=== PATIENT | female | born 1960 | race African-American/Black ===

== ENCOUNTER 2016-05-14 16:11 | Emergency (ER) | payer OTHER, MEDICAID ==
[~2016-05-14] VITALS: Ht 175.3 cm; Wt 105.0 kg
[~2016-05-14 16:11] MED LIST: BACT800T5 PO; DICL50TA PO; METF500T PO; REGL10TA5 PO; ROBA750T PO
[2016-05-14 16:13] VITALS: BP 151/92; PULSE 16; PULSE 83; RESP 15; TEMP 98.2; O2SAT 96
[2016-05-14] MEDS ORDERED: ROBA500T PO (18:27)
[2016-05-14] MEDS ORDERED: NAPR500T PO (18:27)
--- NOTE | 2016-05-14 18:28 | PD ---
HPI Chief Complaint: Pain: Acute or Chronic Time Seen by Provider: 18:26 Travel History International Travel<30 days: No Contact w/Intl Traveler<30days: No Traveled to known affect area: No History of Present Illness HPI 56-year-old female presents to the emergency Department with complaint of right shoulder pain since yesterday morning. She says she woke up with the pain and may have slept on it wrong. No known injury or strain. She denies paresthesias , loss of sensation, decreased strength. Reports decreased range of motion secondary to pain. Denies fever, chills, nausea, vomiting. Has not taken any medications or tried any chance to repeat her symptoms. Pain is aggravated with movement and palpation. No relieving factors. History of hypertension and diabetes. Primary Care provider is Jerome doctor. No other modifying factors or associated signs and symptoms. PFSH Past Medical History Hx Anticoagulant Therapy: No Asthma: Yes Cardiovascular Problems: Yes (CHF) Congestive Heart Failure: Yes Diabetes: Yes Diminished Hearing: No Deep Vein Thrombosis: Yes Gastrointestinal Disorders: Yes Hypertension: Yes Implanted Vascular Access Dvce: No Immunizations Current: Yes ?: Not Menopausal: Yes : 1 Para: 1 Past Surgical History Other Surgery: Yes (cyst removed in back) Social History Alcohol Use: No Tobacco Use: No Substance Use: No Allergies-Medications (Allergen,Severity, Reaction): Coded Allergies: *MDRO Multi-Drug Resistant Organism (Verified Allergy, Unknown, 05/01/16) 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 Reported Meds & Prescriptions Reported Meds & Active Scripts Active Robaxin (Methocarbamol) 500 Mg Tab 500 Mg PO QID PRN Naproxen 500 Mg Tab 500 Mg PO BID PRN Reglan (Metoclopramide HCl) 10 Mg Tab 10 Mg PO Q8HR PRN Bactrim DS (Sulfamethoxazole-Trimethoprim) 800-160 Mg Tab 1 Tab PO BID 5 Days Robaxin (Methocarbamol) 750 Mg Tab 750 Mg PO TID PRN Diclofenac Potassium 50 Mg Tab 50 Mg PO TID PRN Reported Metformin (Metformin HCl) 500 Mg Tab 500 Mg PO BIDPC With meals Review of Systems Except as stated in HPI: all other systems reviewed are Neg Physical Exam Narrative GENERAL: Well-nourished, well-developed female patient, in no acute distress; afebrile, nontoxic-appearing SKIN: Warm and dry. HEAD: Atraumatic. Normocephalic. EYES: Pupils equal and round. No scleral icterus. No injection or drainage. ENT: Mucosa pink and moist. Airway patent. NECK: Supple. Trachea midline. CARDIOVASCULAR: Regular rate. RESPIRATORY: No accessory muscle use. GASTROINTESTINAL: Obese. MUSCULOSKELETAL: Right shoulder with point tenderness to the over the acromioclavicular joint; full range of motion greater than 45 abduction; shoulders equal; no obvious deformity; joint stable; right upper extremity supple and non-tense with 2+ radial pulses and sensory intact and without erythema or edema. 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 No obvious deformities. No clubbing. No cyanosis. No edema. NEUROLOGICAL: Awake and alert. Oriented 3. No obvious cranial nerve deficits. Motor grossly within normal limits. Normal speech. PSYCHIATRIC: Appropriate mood and affect; insight and judgment normal. Data Data Last Documented VS Vital Signs Date Time Temp Pulse Resp B/P Pulse Ox O2 Delivery O2 Flow Rate FiO2 05/14/16 16:13 98.2 83 15 151/92 96 Orders Ibuprofen (Motrin) (05/14/16 18:30) Methocarbamol (Robaxin) (05/14/16 18:30) [facility] [place] Medical Decision Making Medical Screen Exam Complete: Yes Emergency Medical Condition: Yes Medical Record Reviewed: Yes Differential Diagnosis Arthritis, shoulder strain, muscle spasm, nonspecific shoulder pain Narrative Course 56-year-old female with right shoulder pain. No known injury or strain. She has reproducible tenderness at the acromioclavicular joint. Shoulder joint is stable and shoulders are equal. I do not suspect fracture, dislocation, joint separation and feel that imaging is not necessary at this time. The right upper extremity supplemented with 2+ radial pulses and sensory intact with full range of motion and strength. Robaxin and ibuprofen administered in the ER. Naproxen and Robaxin prescribed for home. Instructed patient to follow up with orthopedic as needed. Patient is medically cleared and stable for discharge. Discussed reasons to return to the emergency department. Instructed patient to follow up with primary care provider. Patient agrees with treatment plan. The patients vital signs are stable and the patient is stable for outpatient follow- up and treatment. Patient discharged home, stable and in no acute distress. Diagnosis Primary Impression: Right shoulder pain Qualified Code: M25.511 - Acute pain of right shoulder Referrals: Primary Care Physician Patient Instructions: General Instructions, Shoulder Pain (ED) Additional Instructions: Tylenol, ibuprofen, or naproxen as needed and as directed to reduce pain and inflammation Robaxin as prescribed and as needed for muscle spasms Rest, ice, and compress extremity to decrease pain and inflammation Arm sling for support Avoid aggravating activity; increase activity as tolerated Follow-up with primary care provider Follow-up with orthopedics as needed Return to the emergency department immediately with worsening symptoms Med/Other Pt SpecificInfo: Prescription(s) given Scripts Methocarbamol (Robaxin)500 Mg [id number] Mg PO QID PRN (MUSCLE SPASM) #30 TAB Ref 0 Prov:Josi Goznalez 05/14/16 Naproxen 500 Mg [id number] Mg PO BID PRN (PAIN SCALE 1 TO 10) #20 TAB Ref 0 Prov:Josi Gonzalez 05/14/16 Disposition: 01 DISCHARGE HOME Condition: Stable Josi Gonzalez May 14, 2016 18:28
[2016-05-14] MEDS ORDERED: IBUPROFEN 800 MG TAB PO ONE (18:30)
[2016-05-14] MEDS ORDERED: METHOCARBAMOL 500 MG TAB PO ONE (18:30)
== END 2016-05-14 18:48 | disposition home or self-care (01) ==
LOC: NETRI 16:11 → NEPB 16:11 → NETRI 16:21 → NEPB 18:48
DX: M25.511 Pain in right shoulder (principal); I10 Essential (primary) hypertension; E11.9 Type 2 diabetes mellitus without complications; Z79.84 Long term (current) use of oral hypoglycemic drugs; Z86.79 Personal history of other diseases of the circulatory system; Z86.718 Personal history of other venous thrombosis and embolism; Z87.19 Personal history of other diseases of the digestive system
CPT/HCPCS: 99283

== ENCOUNTER 2017-01-12 19:03 | Emergency (ER) | payer OTHER, MEDICAID ==
[~2017-01-12] VITALS: Ht 175.3 cm; Wt 97.5 kg
[~2017-01-12 19:03] MED LIST changes: +NAPR500T PO; +ROBA500T PO
[2017-01-12 19:05] VITALS: BP 163/105; PULSE 74; RESP 16; TEMP 98; O2SAT 95
--- NOTE | 2017-01-12 19:29 | PD ---
HPI Chief Complaint: Abdominal Pain Time Seen by Provider: 19:13 Travel History International Travel<30 days: No Contact w/Intl Traveler<30days: No Traveled to known affect area: No History of Present Illness HPI Patient is a 56-year-old female with history of diabetes presents emergency Department with left lower quadrant abdominal pain for the past several hours. Patient denies any fever denies any nausea vomiting diarrhea or sick contacts. She states she's never had pain like this before. Denies a vaginal bleeding vaginal discharge. She describes the pain is 10 out of 10 severe and crampy in nature. Fairly sudden in onset PFSH Past Medical History Hx Anticoagulant Therapy: No Asthma: Yes Cardiovascular Problems: Yes (CHF) Congestive Heart Failure: Yes Diabetes: Yes Diminished Hearing: No Deep Vein Thrombosis: Yes Gastrointestinal Disorders: Yes Hypertension: Yes Implanted Vascular Access Dvce: No Immunizations Current: Yes Menopausal: Yes : 1 Para: 1 Past Surgical History Other Surgery: Yes (cyst removed in back) Social History Alcohol Use: No Tobacco Use: No Substance Use: No Allergies-Medications (Allergen,Severity, Reaction): Coded Allergies: *MDRO Multi-Drug Resistant Organism (Verified Allergy, Unknown, 01/12/17) 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 Sitting upright in a chair. SKIN: Focused skin assessment warm/dry. HEAD: Atraumatic. Normocephalic. EYES: Pupils equal and round. No scleral icterus. No injection or drainage. ENT: No nasal bleeding or discharge. Mucous membranes pink and moist. NECK: Trachea midline. No JVD. CARDIOVASCULAR: Regular rate and rhythm. No murmur appreciated. RESPIRATORY: No accessory muscle use. Clear to auscultation. Breath sounds equal bilaterally. GASTROINTESTINAL: Abdomen soft, non-tender, nondistended. Hepatic and splenic margins not palpable. No rebound no percussive tenderness, psoas and obturator signs negative, MUSCULOSKELETAL: No obvious deformities. No clubbing. No cyanosis. No edema. NEUROLOGICAL: Awake and alert. No obvious cranial nerve deficits. Motor grossly within normal limits. Normal speech. PSYCHIATRIC: Appropriate mood and affect; insight and judgment normal. Data Data Last Documented VS Vital Signs Date Time Temp Pulse Resp B/P (MAP) Pulse Ox O2 Delivery O2 Flow Rate FiO2 01/12/17 19:31 98.7 73 18 143/79 (100) 97 Room Air Orders Orders Complete Blood Count With Diff (01/12/17 19:19) Comprehensive Metabolic Panel (01/12/17 19:19) Urinalysis - C+S If Indicated (01/12/17 19:19) Iv Access Insert/Monitor (01/12/17 19:19) Ecg Monitoring (01/12/17 19:19) Oximetry (01/12/17 19:19) Sodium Chloride 0.9% Flush (Ns Flush) (01/12/17 19:30) Ketorolac Inj (Toradol Inj) (01/12/17 19:30) Sodium Chlorid 0.9% 500 Ml Inj (Ns 500 M (01/12/17 19:30) Ondansetron Inj (Zofran Inj) (01/12/17 19:30) Ondansetron Inj (Zofran Inj) (01/12/17 20:45) Ondansetron Odt (Zofran Odt) (01/12/17 20:45) Urine Culture (01/12/17 21:35) Labs Laboratory Tests Test 01/12/17 20:00 01/12/17 21:35 White Blood Count 7.9 TH/MM3 Red Blood Count 5.37 MIL/MM3 Hemoglobin 12.1 GM/DL Hematocrit 39.4 % Mean Corpuscular Volume 73.3 FL Mean Corpuscular Hemoglobin 22.4 PG Mean Corpuscular Hemoglobin Concent 30.6 % Red Cell Distribution Width 15.6 % Platelet Count 207 TH/MM3 Mean Platelet Volume 9.2 FL Neutrophils (%) (Auto) 66.3 % Lymphocytes (%) (Auto) 21.5 % Monocytes (%) (Auto) 5.1 % Eosinophils (%) (Auto) 6.4 % Basophils (%) (Auto) 0.7 % Neutrophils # (Auto) 5.2 TH/MM3 Lymphocytes # (Auto) 1.7 TH/MM3 Monocytes # (Auto) 0.4 TH/MM3 Eosinophils # (Auto) 0.5 TH/MM3 Basophils # (Auto) 0.1 TH/MM3 CBC Comment DIFF FINAL Differential Comment Blood Urea Nitrogen 14 MG/DL Creatinine 0.84 MG/DL Random Glucose 101 MG/DL Total Protein 8.2 GM/DL Albumin 4.1 GM/DL Calcium Level 8.7 MG/DL Alkaline Phosphatase 71 U/L Aspartate Amino Transf (AST/SGOT) 19 U/L Alanine Aminotransferase (ALT/SGPT) 22 U/L Total Bilirubin 0.4 MG/DL Sodium Level 140 MEQ/L Potassium Level 3.7 MEQ/L Chloride Level 106 MEQ/L Carbon Dioxide Level 29.8 MEQ/L Anion Gap 4 MEQ/L Estimat Glomerular Filtration Rate 85 ML/MIN Urine Color YELLOW Urine Turbidity HAZY Urine pH 6.0 Urine Specific [place] 1.034 Urine Protein TRACE mg/dL Urine Glucose (UA) NEG mg/dL Urine Ketones NEG mg/dL Urine Occult Blood NEG Urine Nitrite NEG Urine Bilirubin NEG Urine Urobilinogen LESS THAN 2.0 MG/DL Urine Leukocyte Esterase MOD Urine RBC 2 /hpf Urine WBC 11 /hpf Urine Squamous Epithelial Cells 12 /hpf Urine Bacteria OCC /hpf Urine Mucus MOD /lpf Microscopic Urinalysis Comment CULTURE INDICATED MDM Medical Decision Making Medical Screen Exam Complete: Yes Emergency Medical Condition: Yes Differential Diagnosis Colitis, diverticular is come urinary tract infection, acute abdomen unlikely. Narrative Course Patient 56-year-old female with a history of diabetes presents emergency department for evaluation of left lower quadrant abdominal pain. Labs are reassuring, UA does show a minimal evidence for urinary tract infection. Plan is to pursue a CAT scan of the abdomen, initially with IV contrast however patient difficult IV access as well as diabetes we will try to protect her kidney function by avoiding IV contrast, a noncontrast CT scan was ordered particular looking for kidney stones and exclusion, location of diverticulitis. The patient declined examination. She states that she doesn't think she needs it. At this time after pain medication and patient is feeling better. She would like to go home. Discussed empiric therapy with antibiotics and follow-up the primary care physician. She is agreeable. Discussed return to ED criteria. Diagnosis Primary Impression: LLQ abdominal pain Additional Impression: Urinary tract infection Qualified Codes: N30.00 - Acute cystitis without hematuria Med/Other Pt SpecificInfo: Prescription(s) given Scripts Nitrofurantoin Monohydrate Macrocrystals (Macrobid) 100 Mg Cap 100 MG PO BID for Infection for 5 Days, CAP 0 Refills Prov: Vineet Singh MD 01/12/17 Disposition: 01 DISCHARGE HOME Condition: Stable Vineet Singh MD Jan 12, 2017 19:29
[2017-01-12] MEDS ORDERED: SODIUM CHLORID 0.9% 500 ML INJ 500 ML IV ONE (19:30)
[2017-01-12] MEDS ORDERED: ONDANSETRON HCL 4 MG/2 ML VIAL IV PUSH ONE ×2 (19:30→20:45)
[2017-01-12] MEDS ORDERED: KETOROLAC TROMETHAMINE 30 MG/ML (IVP) VIAL IV PUSH ONE (19:30)
[2017-01-12] MEDS ORDERED: SODIUM CHLORIDE 0.9% FLUSH 10 ML FLUSH IV FLUSH PRN (19:30)
[2017-01-12 19:31] VITALS: BP 143/79; PULSE 73; RESP 18; TEMP 98.7; O2SAT 97
[2017-01-12 20:11] LABS: AUTOMATED NEUTROPHIL # 5.2 TH/MM3 (1.8-7.7); BASOPHIL # 0.1 TH/MM3 (0-0.2); BASOPHIL % 0.7 % (0.0-2.0); EOSINOPHIL # 0.5 TH/MM3 (0-0.4); EOSINOPHIL % 6.4 % (0.0-4.0); HEMATOCRIT 39.4 % (35.0-46.0); HEMO FLAGS DIFF FINAL; LYMPH % 21.5 % (9.0-44.0); LYMPHOCYTE # 1.7 TH/MM3 (1.0-4.8); MEAN CELL VOLUME 73.3 FL (80.0-100.0); MEAN CORPUSCULAR HEMOGLOBIN 22.4 PG (27.0-34.0); MEAN CORPUSCULAR HGB CONC 30.6 % (32.0-36.0); MONO % 5.1 % (0.0-8.0); NEUT % 66.3 % (16.0-70.0); PLATELET COUNT 207 TH/MM3 (150-450); RED BLOOD COUNT 5.37 MIL/MM3 (4.00-5.30); RED CELL DISTRIBUTION WIDTH 15.6 % (11.6-17.2); WHITE BLOOD COUNT 7.9 TH/MM3 (4.0-11.0)
[2017-01-12 20:45] LABS: ANION GAP 4 MEQ/L (5-15); BICARBONATE 29.8 MEQ/L (21.0-32.0); BLOOD UREA NITROGEN 14 MG/DL (7-18); CHLORIDE 106 MEQ/L (98-107); GLOMERULAR FILTRATION RATE 85 ML/MIN (>89); POTASSIUM 3.7 MEQ/L (3.5-5.1); SODIUM (NA) 140 MEQ/L (136-145)
[2017-01-12] MEDS ORDERED: ONDANSETRON ODT 4 MG TAB PO ONE (20:45)
[2017-01-12 20:46] LABS: ALT (GPT) 22 U/L (10-53); AST (GOT) 19 U/L (15-37)
[2017-01-12 20:47] LABS: ALKALINE PHOSPHATASE 71 U/L (45-117); TOTAL BILIRUBIN ADULT 0.4 MG/DL (0.2-1.0)
[2017-01-12 22:12] LABS: BACTERIA, URINE OCC /hpf; BLOOD, URINE NEG (NEG); COMMENT (UR) CULTURE INDICATED; CULTURE IF INDICATED CULTURE INDICATED; GLUCOSE,URINE NEG (NEG); KETONE, URINE NEG (NEG); MUCUS URINE MOD /lpf (OCC); NITRITE,URINE NEG (NEG); SQUAMOUS EPITHELIAL CELL URINE 12 /hpf (0-5); URINE COLOR YELLOW (YELLW/STRAW)
[2017-01-12] MEDS ORDERED: MACR100C2 PO (22:21)
== END 2017-01-12 22:30 | disposition home or self-care (01) ==
LOC: NEPD 19:03
DX: R10.32 Left lower quadrant pain (principal); N30.00 Acute cystitis without hematuria; I10 Essential (primary) hypertension; E11.9 Type 2 diabetes mellitus without complications; Z79.84 Long term (current) use of oral hypoglycemic drugs
CPT/HCPCS: 80053; 81001; 85025; 87086; 96374; 99285; J1885

== ENCOUNTER 2017-02-21 17:07 | Emergency (ER) | payer OTHER, MEDICAID ==
[~2017-02-21 17:07] MED LIST changes: -BACT800T5 PO; +MACR100C2 PO; -REGL10TA5 PO; -ROBA500T PO
[2017-02-21 17:09] VITALS: BP 153/73; PULSE 93; RESP 18; TEMP 100.5; O2SAT 96
--- NOTE | 2017-02-21 18:37 | PD ---
Physical Exam Time Seen by Provider: 18:28 Narrative 57-year-old female presents with complaint of vomiting since this morning. Denies abdominal pain, diarrhea. Patient has fever of 100.5 in triage. Unknown fevers at home. Also complaining of headache. Patient is diabetic and says her blood sugar this morning was 130. Patient seen in triage. Vital signs reviewed. Patient awaiting bed placement. Data Data Last Documented VS Vital Signs Date Time Temp Pulse Resp B/P (MAP) Pulse Ox O2 Delivery O2 Flow Rate FiO2 02/21/17 17:09 100.5 93 18 153/73 (99) 96 MDM Supervised Visit with TAMANNA: Josi James Feb 21, 2017 18:37
[2017-02-21] MEDS ORDERED: SODIUM CHLOR 0.9% 1000 ML INJ 1,000 ML IV SCH (18:44)
[2017-02-21] MEDS ORDERED: KETOROLAC TROMETHAMINE 30 MG/ML (IVP) VIAL IVP ONE (18:45)
[2017-02-21] MEDS ORDERED: ONDANSETRON HCL 4 MG/2 ML VIAL IVP ONE (18:45)
--- NOTE | 2017-02-21 18:51 | PD ---
HPI Chief Complaint: Fever Time Seen by Provider: 18:39 Travel History International Travel<30 days: No Contact w/Intl Traveler<30days: No Traveled to known affect area: No History of Present Illness HPI 57-year-old female that presents to the ED for evaluation of nausea and vomiting. Per patient she developed this after eating some pancakes today. Per patient about he also ate this. Per patient the pain is now. Per patient she has chills and she was found to have a fever by 3 years. She states having a slight headache. She denies any cough or congestion. No cold like symptoms. No diarrhea. States that she has abdominal pain in the epigastric area but mostly has body aches. She has not taken anything for this. Patient states she cannot keep anything down. Symptoms that started early this morning. History of MRSA. Denies any neck pain. Pain per patient is 4 out of 10. Denies any blood in the emesis. Symptoms started this morning after eating a pancake. PFSH Past Medical History Hx Anticoagulant Therapy: No Asthma: Yes Cardiovascular Problems: Yes (CHF) Congestive Heart Failure: Yes Diabetes: Yes Diminished Hearing: No Deep Vein Thrombosis: Yes Gastrointestinal Disorders: Yes Hypertension: Yes Implanted Vascular Access Dvce: No Immunizations Current: Yes Menopausal: Yes : 1 Para: 1 Past Surgical History Other Surgery: Yes (cyst removed in back) Social History Alcohol Use: No Tobacco Use: No Substance Use: No Allergies-Medications (Allergen,Severity, Reaction): Coded Allergies: *MDRO Multi-Drug Resistant Organism (Verified Allergy, Unknown, 02/21/17) 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 HEAD: Atraumatic. Normocephalic. EYES: Pupils equal and round. No scleral icterus. No injection or drainage. ENT: No nasal bleeding or discharge. Mucous membranes pink and moist. Tongue is midline. No uvula deviation. Tonsils are not enlarged or swollen. No uvula deviation. No obvious meningeal signs noted. NECK: Trachea midline. No JVD. CARDIOVASCULAR: Regular rate and rhythm. No murmurs, S3, S4. RESPIRATORY: No accessory muscle use. Clear to auscultation. Breath sounds equal bilaterally. GASTROINTESTINAL: Abdomen soft, non-tender, nondistended. Hepatic and splenic margins not palpable. MUSCULOSKELETAL: Extremities without clubbing, cyanosis, or edema. No obvious deformities. Full range of motion of the upper and lower extremities bilaterally. 2+ pulses bilaterally. NEUROLOGICAL: Awake and alert. No obvious cranial nerve deficits. Motor grossly within normal limits. Five out of 5 muscle strength in the arms and legs. Normal speech. PSYCHIATRIC: Appropriate mood and affect; insight and judgment normal. Data Data Last Documented VS Vital Signs Date Time Temp Pulse Resp B/P (MAP) Pulse Ox O2 Delivery O2 Flow Rate FiO2 02/21/17 21:02 99.0 02/21/17 19:54 Room Air 02/21/17:17 90 20 98 Orders Orders Complete Blood Count With Diff (02/21/17 18:44) Comprehensive Metabolic Panel (02/21/17 18:44) Blood Culture (02/21/17 18:44) Lipase (02/21/17 18:44) Urinalysis - C+S If Indicated (02/21/17 18:44) Magnesium (Mg) (02/21/17 18:44) Influenzae A/B Antigen (02/21/17 18:44) Chest, Single Ap (02/21/17 18:44) Iv Access Insert/Monitor (02/21/17 18:44) Ecg Monitoring (02/21/17 18:44) Oximetry (02/21/17 18:44) Lactic Acid (02/21/17 18:44) Ondansetron Inj (Zofran Inj) (02/21/17 18:45) Sodium Chlor 0.9% 1000 Ml Inj (Ns 1000 M (02/21/17 18:44) Ketorolac Inj (Toradol Inj) (02/21/17 18:45) B-Type Natriuretic Peptide (02/21/17 19:25) Labs Laboratory Tests Test 02/21/17 19:45 02/21/17 19:58 White Blood Count 11.8 TH/MM3 Red Blood Count 5.24 MIL/MM3 Hemoglobin 11.9 GM/DL Hematocrit 38.1 % Mean Corpuscular Volume 72.8 FL Mean Corpuscular Hemoglobin 22.7 PG Mean Corpuscular Hemoglobin Concent 31.3 % Red Cell Distribution Width 14.8 % Platelet Count 188 TH/MM3 Mean Platelet Volume 9.4 FL Neutrophils (%) (Auto) 93.4 % Lymphocytes (%) (Auto) 3.6 % Monocytes (%) (Auto) 2.5 % Eosinophils (%) (Auto) 0.1 % Basophils (%) (Auto) 0.4 % Neutrophils # (Auto) 11.0 TH/MM3 Lymphocytes # (Auto) 0.4 TH/MM3 Monocytes # (Auto) 0.3 TH/MM3 Eosinophils # (Auto) 0.0 TH/MM3 Basophils # (Auto) 0.0 TH/MM3 CBC Comment DIFF FINAL Differential Comment Urine Color LIGHT-YELLOW Urine Turbidity CLEAR Urine pH 7.5 Urine Specific [place] 1.017 Urine Protein NEG mg/dL Urine Glucose (UA) NEG mg/dL Urine Ketones NEG mg/dL Urine Occult Blood NEG Urine Nitrite NEG Urine Bilirubin NEG Urine Urobilinogen LESS THAN 2.0 MG/DL Urine Leukocyte Esterase NEG Urine RBC 1 /hpf Urine WBC LESS THAN 1 /hpf Urine Mucus FEW /lpf Microscopic Urinalysis Comment CULT NOT INDICATED Blood Urea Nitrogen 10 MG/DL Creatinine 0.79 MG/DL Random Glucose 171 MG/DL Total Protein 7.9 GM/DL Albumin 4.0 GM/DL Calcium Level 9.3 MG/DL Magnesium Level 1.9 MG/DL Alkaline Phosphatase 59 U/L Aspartate Amino Transf (AST/SGOT) 27 U/L Alanine Aminotransferase (ALT/SGPT) 21 U/L Total Bilirubin 0.7 MG/DL Sodium Level 135 MEQ/L Potassium Level 4.1 MEQ/L Chloride Level 99 MEQ/L Carbon Dioxide Level 28.6 MEQ/L Anion Gap 7 MEQ/L Estimat Glomerular Filtration Rate 90 ML/MIN Lactic Acid Level 1.2 mmol/L Lipase 248 U/L B-Type Natriuretic Peptide 14 PG/ML MDM Medical Decision Making Medical Screen Exam Complete: Yes Emergency Medical Condition: Yes Medical Record Reviewed: Yes Interpretation(s) CBC & BMP Diagram 02/21/17 19:45 Total Protein 7.9, Albumin 4.0, Calcium Level 9.3, Magnesium Level 1.9, Alkaline Phosphatase 59, Aspartate Amino Transf (AST/SGOT) 27, Alanine Aminotransferase (ALT/SGPT) 21, Total Bilirubin 0.7 UA negative influenza negative CXR negative Differential Diagnosis Fever versus cystitis versus abdominal pain versus nausea and vomiting versus gastroenteritis versus influenza versus pneumonia versus normal exam Narrative Course 57-year-old female that presents to the ED for evaluation of fever and nausea and vomiting after eating a pancake. Patient was properly examined and was found to have signs and symptoms of unclear etiology. Likely gastroenteritis. She however does have a fever at this time. Unclear as to the reason. Labs and imaging were ordered. Patient was given IV medications as well as fluids. Labs and imaging showed no sign of acute disease. On reassess patient feels better, sleeping in no distress. nausea improved. Likely gastroenteritis. Will treat with antiemetics. Fever likely from viral illness. Abdomen is benign. Case discussed in my attending who agrees with plan. Told to follow up with PCP. See ED worsening symptoms. Diagnosis Primary Impression: Gastroenteritis Patient Instructions: General Instructions Additional Instructions: Take medications as prescribed. Liquid diet until better. See ED worsening symptoms. Follow up with PCP. Tylenol or Motrin for pain. Med/Other Pt SpecificInfo: Prescription(s) given Scripts Ranitidine (Zantac) 150 Mg Tab 150 MG PO BID for Reduce Stomach Acid, #20 TAB 0 Refills Prov: Oli Pelayo MD 02/21/17 Ondansetron (Zofran) 4 Mg Tab 4 MG PO Q6HR Y for NAUSEA OR VOMITING, #15 TAB 0 Refills Prov: Oli Pelayo MD 02/21/17 Disposition: 01 DISCHARGE HOME Condition: Stable Miguel German Feb 21, 2017 18:51
--- NOTE | 2017-02-21 19:05 | RADRPT ---
EXAM DATE/TIME: 02/21/2017 18:59 [facility] COMPARISON: CHEST SINGLE AP, May 01, 2016, 19:48. INDICATIONS : Fever, abdominal pain and vomitting. MEDICAL HISTORY : Congestive heart failure. Hypertension.Asthma.Diabetes. SURGICAL HISTORY : None. ENCOUNTER: Initial ACUITY: 1 day PAIN SCORE: 0/10 LOCATION: Bilateral chest FINDINGS: Diffuse vascular prominence is noted. There is no evidence of consolidating airspace disease. Heart is moderately enlarged. Osseous structures are intact. CONCLUSION: Mild generalized vascular prominence. Cardiomegaly. No evidence of consolidating airspace disease. Phil Garcia MD on February 21, 2017 at 19:02 Board Certified Radiologist. This report was verified electronically.
[2017-02-21 20:40] LABS: BASOPHIL % 0.4 % (0.0-2.0); EOSINOPHIL % 0.1 % (0.0-4.0); HEMATOCRIT 38.1 % (35.0-46.0); HEMO FLAGS DIFF FINAL; LYMPH % 3.6 % (9.0-44.0); LYMPHOCYTE # 0.4 TH/MM3 (1.0-4.8); MEAN CELL VOLUME 72.8 FL (80.0-100.0); MEAN CORPUSCULAR HEMOGLOBIN 22.7 PG (27.0-34.0); MEAN CORPUSCULAR HGB CONC 31.3 % (32.0-36.0); MONO % 2.5 % (0.0-8.0); NEUT % 93.4 % (16.0-70.0); PLATELET COUNT 188 TH/MM3 (150-450); RED BLOOD COUNT 5.24 MIL/MM3 (4.00-5.30); RED CELL DISTRIBUTION WIDTH 14.8 % (11.6-17.2); WHITE BLOOD COUNT 11.8 TH/MM3 (4.0-11.0)
[2017-02-21 20:47] LABS: BLOOD, URINE NEG (NEG); COMMENT (UR) CULT NOT INDICATED; CULTURE IF INDICATED CULT NOT INDICATED; GLUCOSE,URINE NEG (NEG); KETONE, URINE NEG (NEG); MUCUS URINE FEW /lpf (OCC); NITRITE,URINE NEG (NEG); PH, URINE 7.5 (5.0-8.5); URINE COLOR LIGHT-YELLOW (YELLW/STRAW)
[2017-02-21 20:50] LABS: ALT (GPT) 21 U/L (10-53)
[2017-02-21 20:51] LABS: ALKALINE PHOSPHATASE 59 U/L (45-117); TOTAL BILIRUBIN ADULT 0.7 MG/DL (0.2-1.0)
[2017-02-21 20:53] LABS: ANION GAP 7 MEQ/L (5-15); AST (GOT) 27 U/L (15-37); BICARBONATE 28.6 MEQ/L (21.0-32.0); BLOOD UREA NITROGEN 10 MG/DL (7-18); CHLORIDE 99 MEQ/L (98-107); GLOMERULAR FILTRATION RATE 90 ML/MIN (>89); MAGNESIUM 1.9 MG/DL (1.5-2.5); POTASSIUM 4.1 MEQ/L (3.5-5.1); SODIUM (NA) 135 MEQ/L (136-145)
[2017-02-21 21:02] VITALS: TEMP 99
[2017-02-21] MEDS ORDERED: ZANT150T2 PO (21:22)
[2017-02-21] MEDS ORDERED: ZOFR4TAB PO (21:22)
== END 2017-02-21 22:40 | disposition home or self-care (01) ==
LOC: NEPC 17:07
DX: K52.9 Noninfective gastroenteritis and colitis, unspecified (principal); R50.9 Fever, unspecified; R51 Headache; M79.1 Myalgia; E11.9 Type 2 diabetes mellitus without complications; I10 Essential (primary) hypertension; Z79.84 Long term (current) use of oral hypoglycemic drugs; Z86.14 Personal history of Methicillin resistant Staphylococcus aureus infection; Z87.09 Personal history of other diseases of the respiratory system; Z86.79 Personal history of other diseases of the circulatory system; Z86.718 Personal history of other venous thrombosis and embolism; Z87.19 Personal history of other diseases of the digestive system
CPT/HCPCS: 71010; 80053; 81001; 83605; 83690; 83735; 83880; 85025; 87040; 87804; 96374; 96375; 99284; J1885; J2405

== ENCOUNTER 2017-07-03 16:35 | Emergency (ER) | payer OTHER, MEDICAID ==
[~2017-07-03] VITALS: Ht 175.3 cm; Wt 98.0 kg
[~2017-07-03 16:35] MED LIST changes: -NAPR500T PO; +NAPR500T2 PO; +ZANT150T2 PO; +ZOFR4TAB PO
[2017-07-03 16:38] VITALS: BP 148/85; PULSE 89; RESP 14; TEMP 98.1; O2SAT 98
--- NOTE | 2017-07-03 18:37 | PD ---
HPI Chief Complaint: Injury Time Seen by Provider: 18:30 Travel History International Travel<30 days: No Contact w/Intl Traveler<30days: No Traveled to known affect area: No History of Present Illness HPI This patient complains of pain in the right foot. Duration is 1 week. Severity is mild to moderate. She is ambulatory. It is located at the distal right forefoot. She denies any injury. PFSH Past Medical History Hx Anticoagulant Therapy: No Asthma: Yes Blood Disorders: No Cancer: No Cardiovascular Problems: Yes (CHF) Congestive Heart Failure: Yes Diabetes: Yes Diminished Hearing: No Deep Vein Thrombosis: Yes Endocrine: Yes Gastrointestinal Disorders: Yes Genitourinary: No Hypertension: Yes Immune Disorder: No Implanted Vascular Access Dvce: No Musculoskeletal: No Neurologic: No Psychiatric: No Reproductive: No Respiratory: No Immunizations Current: Yes Menopausal: Yes : 1 Para: 1 Past Surgical History Other Surgery: Yes (cyst removed in back) Social History Alcohol Use: No Tobacco Use: No Substance Use: No Allergies-Medications (Allergen,Severity, Reaction): Coded Allergies: *MDRO Multi-Drug Resistant Organism (Verified Allergy, Unknown, 07/03/17) 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 Reported Meds & Prescriptions Reported Meds & Active Scripts Active Zantac (Ranitidine HCl) 150 Mg Tab 150 Mg PO BID Zofran (Ondansetron HCl) 4 Mg Tab 4 Mg PO Q6HR PRN Macrobid (Nitrofurantoin Monoh/Nitrofur Macro) 100 Mg Cap 100 Mg PO BID 5 Days Naproxen 500 Mg Tab 500 Mg PO BID PRN Robaxin (Methocarbamol) 750 Mg Tab 750 Mg PO TID PRN Diclofenac Potassium 50 Mg Tab 50 Mg PO TID PRN Reported Metformin (Metformin HCl) 500 Mg Tab 500 Mg PO BIDPC With meals Review of Systems General / Constitutional: No: Fever HENT: No: Headaches Cardiovascular: No: Chest Pain or Discomfort Physical Exam Narrative SKIN: Focused skin assessment reveals no rash or ulcers. Skin is warm and dry. Palpation shows no induration or nodules. Psych: Normal mood and affect. Normal insight and judgment. Right foot: Minor tenderness over the distal mid foot without deformity bruising crepitus or erythema. Sensation subjectively intact. Has large hammertoe Data Data Last Documented VS Vital Signs Date Time Temp Pulse Resp B/P (MAP) Pulse Ox O2 Delivery O2 Flow Rate FiO2 2/24/18 18:14 16 98 Room Air 07/03/17 16:38 98.1 89 148/85 (106) Orders Orders Foot, Limited (2vws) (07/03/17 ) MDM Medical Decision Making Medical Screen Exam Complete: Yes Emergency Medical Condition: Yes Medical Record Reviewed: Yes Differential Diagnosis Contusion, fracture, abscess Narrative Course I have reviewed the patient's electronic medical record. No clinical sign of infection here. X-rays reviewed and there is no fracture but a hint of subcutaneous edema. There is no open wound or any reason to suspect osteomyelitis here No warmth or redness or fluctuance or drainage or significant tenderness Recommend follow-up with primary care or podiatry Diagnosis Primary Impression: Right foot pain Additional Impression: Diabetes mellitus Additional Instructions: The patient was advised to follow up with their physician and return if they worsen. Med/Other Pt SpecificInfo: Other Disposition: 01 DISCHARGE HOME Condition: Stable Ken Clinton MD Jul 03, 2017 18:37
--- NOTE | 2017-07-03 19:44 | RADRPT ---
EXAM DATE/TIME: 07/03/2017 19:11 [facility] COMPARISON: No previous studies available for comparison. INDICATIONS : Right Foot Pain MEDICAL HISTORY : Congestive heart failure. Hypertension.Asthma.Diabetes. SURGICAL HISTORY : None. ENCOUNTER: Initial ACUITY: 1 day PAIN SCORE: 5/10 LOCATION: Right foot FINDINGS: 2 views of the right foot demonstrate no fracture or dislocation. Mineralization is within normal duron its and Lisfranc joint appears intact. 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 Mild subcutaneous edema is present on the dorsal aspect of the foot. There are mild degene rative changes in the midfoot. No radiopaque foreign body is identified. CONCLUSION: 1. Mild subcutaneous edema on the dorsal aspect of the foot. No acute osseous abnormality is identifi ed. 2. Mild degenerative changes are present in the midfoot and there is hallux valgus deformity with ost eoarthritis at the first MTP joint. Tod Thomas MD on July 03, 2017 at 19:41 Board Certified Radiologist. This report was verified electronically.
== END 2017-07-03 20:50 | disposition home or self-care (01) ==
LOC: NEPD 16:35
DX: M79.671 Pain in right foot (principal); E11.9 Type 2 diabetes mellitus without complications; Z79.84 Long term (current) use of oral hypoglycemic drugs
CPT/HCPCS: 73620; 99283

== ENCOUNTER 2017-07-10 07:49 | Emergency (ER) | payer OTHER, MEDICAID ==
[~2017-07-10] VITALS: Ht 175.3 cm; Wt 100.0 kg
[2017-07-10 07:54] VITALS: BP 142/73; PULSE 85; RESP 20; TEMP 98.6; O2SAT 94
--- NOTE | 2017-07-10 08:04 | PD ---
HPI Chief Complaint: Cold / Flu Symptoms Time Seen by Provider: 08:00 Travel History International Travel<30 days: No Contact w/Intl Traveler<30days: No Traveled to known affect area: No History of Present Illness HPI 57-year-old female presents emergency department with history of CHF, asthma, and hypertension. She presents with complaints of increased cough and shortness of breath over the past 48 hours. Patient denies significant fever. Patient denies headache, sore throat, or ear pain. Patient denies chest pain, nausea, vomiting, or diarrhea. Patient is a poor historian. Patient has history of MRSA. PFSH Past Medical History Hx Anticoagulant Therapy: No Asthma: Yes Blood Disorders: No Cancer: No Cardiovascular Problems: Yes Congestive Heart Failure: Yes Diabetes: Yes Diminished Hearing: No Deep Vein Thrombosis: Yes Endocrine: Yes Gastrointestinal Disorders: Yes Genitourinary: No Hypertension: Yes Immune Disorder: No Implanted Vascular Access Dvce: No Musculoskeletal: No Neurologic: No Psychiatric: No Reproductive: No Respiratory: No Immunizations Current: Yes Menopausal: Yes : 1 Para: 1 Past Surgical History Other Surgery: Yes (cyst removed in back) Social History Alcohol Use: No Tobacco Use: No Substance Use: No Allergies-Medications (Allergen,Severity, Reaction): Coded Allergies: *MDRO Multi-Drug Resistant Organism (Verified Allergy, Unknown, 07/10/17) 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 Reported Meds & Prescriptions Reported Meds & Active Scripts Active Nebulizer 1 Mis Mis Ea .XX DIRECTED Prednisone 20 Mg Tab 20 Mg PO BID 5 Days Albuterol Neb (Albuterol Sulfate) 2.5 Mg/3 Ml Neb 2.5 Mg NEB Q4HR NEB PRN Ventolin Hfa 18 GM Inh (Albuterol Sulfate) 90 Mcg/Act Aer 2 Puff INH Q4-6H PRN Azithromycin 500 Mg Tab 500 Mg PO DAILY Reported Metformin (Metformin HCl) 500 Mg Tab 500 Mg PO BIDPC With meals Review of Systems ROS Limitations: Poor Historian Except as stated in HPI: all other systems reviewed are Neg General / Constitutional: No: Fever, Chills Eyes: No: Visual changes HENT: No: Headaches, Vertigo, Lightheadedness, Sore Throat, Rhinitis, Rhinorrhea, Congestion, Nosebleed, Neck Stiffness, Neck Pain, Dental Difficulties, Earache Cardiovascular: No: Chest Pain or Discomfort Respiratory: Positive: Cough, Shortness of Breath, Wheezing, No: Sneezing, Orthopnea, Hemoptysis, Stridor, Night Sweats, Pleuritic Pain Gastrointestinal: No: Nausea, Vomiting, Diarrhea, Abdominal Pain Genitourinary: No: Dysuria Musculoskeletal: No: Pain Skin: No Rash Neurologic: No: Weakness Psychiatric: No: Depression Endocrine: No: Polydipsia Hematologic/Lymphatic: No: Easy Bruising Physical Exam Narrative GENERAL: Patient appears in mild distress. SKIN: Warm and dry. Normal color. Decreased turgor HEAD: Atraumatic. Normocephalic. EYES: Pupils equal and round. No scleral icterus. No injection or drainage. ENT: No nasal bleeding or discharge. Mucous membranes pink and dry. Posterior pharynx is unremarkable. Airways patent. TMs are clear bilaterally. NECK: Trachea midline. Supple and nontender. CARDIOVASCULAR: Regular rate and rhythm. No murmurs gallops or rubs appreciated. RESPIRATORY: No accessory muscle use. Moderate diffuse wheezes throughout to auscultation. No obvious rhonchi or rales. Breath sounds equal bilaterally. GASTROINTESTINAL: Abdomen soft, non-tender, nondistended. Hepatic and splenic margins not palpable. MUSCULOSKELETAL: Extremities without clubbing, cyanosis, or edema. No obvious deformities. NEUROLOGICAL: Awake and alert. No obvious cranial nerve deficits. Motor grossly within normal limits. Five out of 5 muscle strength in the arms and legs. Normal speech. PSYCHIATRIC: Appropriate mood and affect; insight and judgment normal. Data Data Last Documented VS Vital Signs Date Time Temp Pulse Resp B/P (MAP) Pulse Ox O2 Delivery O2 Flow Rate FiO2 07/10/17 07:54 98.6 85 20 142/73 (96) 94 Orders Orders Complete Blood Count With Diff (07/10/17 08:05) Comprehensive Metabolic Panel (07/10/17 08:05) B-Type Natriuretic Peptide (07/10/17 08:05) Act Partial Throm Time (Ptt) (07/10/17 08:05) Prothrombin Time / Inr (Pt) (07/10/17 08:05) Urinalysis - C+S If Indicated (07/10/17 08:05) Influenzae A/B Antigen (07/10/17 08:05) Iv Access Insert/Monitor (07/10/17 08:05) Electrocardiogram (07/10/17 08:05) Ecg Monitoring (07/10/17 08:05) Oximetry (07/10/17 08:05) Oxygen Administration (07/10/17 08:05) Chest, Single Ap (07/10/17 08:05) Sodium Chloride 0.9% Flush (Ns Flush) (07/10/17 08:15) Methylprednisolone So Succ Inj (Solumedr (07/10/17 08:15) Albuterol-Ipratropium Neb (Duoneb Neb) (07/10/17 08:15) Prednisone (Deltasone) (07/10/17 09:30) Ceftriaxone Inj (Rocephin Inj) (07/10/17 10:15) Azithromycin (Zithromax) (07/10/17 10:15) Labs Laboratory Tests Test 07/10/17 08:58 07/10/17 10:12 White Blood Count 6.9 TH/MM3 Red Blood Count 6.07 MIL/MM3 Hemoglobin 14.1 GM/DL Hematocrit 44.3 % Mean Corpuscular Volume 73.1 FL Mean Corpuscular Hemoglobin 23.3 PG Mean Corpuscular Hemoglobin Concent 31.9 % Red Cell Distribution Width 15.4 % Platelet Count 170 TH/MM3 Mean Platelet Volume 8.9 FL Neutrophils (%) (Auto) 75.5 % Lymphocytes (%) (Auto) 17.4 % Monocytes (%) (Auto) 6.7 % Eosinophils (%) (Auto) 0.1 % Basophils (%) (Auto) 0.3 % Neutrophils # (Auto) 5.2 TH/MM3 Lymphocytes # (Auto) 1.2 TH/MM3 Monocytes # (Auto) 0.5 TH/MM3 Eosinophils # (Auto) 0.0 TH/MM3 Basophils # (Auto) 0.0 TH/MM3 CBC Comment DIFF FINAL Differential Comment Prothrombin Time 11.2 SEC Prothromb Time International Ratio 1.1 RATIO Activated Partial Thromboplast Time 23.1 SEC Blood Urea Nitrogen 18 MG/DL Creatinine 0.95 MG/DL Random Glucose 152 MG/DL Total Protein 8.4 GM/DL Albumin 4.0 GM/DL Calcium Level 9.2 MG/DL Alkaline Phosphatase 67 U/L Aspartate Amino Transf (AST/SGOT) 90 U/L Alanine Aminotransferase (ALT/SGPT) 36 U/L Total Bilirubin 0.6 MG/DL Sodium Level 137 MEQ/L Potassium Level 3.2 MEQ/L Chloride Level 99 MEQ/L Carbon Dioxide Level 27.4 MEQ/L Anion Gap 11 MEQ/L Estimat Glomerular Filtration Rate 73 ML/MIN B-Type Natriuretic Peptide 27 PG/ML Urine Color YELLOW Urine Turbidity CLEAR Urine pH 5.5 Urine Specific [place] 1.027 Urine Protein 30 mg/dL Urine Glucose (UA) NEG mg/dL Urine Ketones 10 mg/dL Urine Occult Blood SMALL Urine Nitrite NEG Urine Bilirubin NEG Urine Urobilinogen 2.0 MG/DL Urine Leukocyte Esterase NEG Urine RBC LESS THAN 1 /hpf Urine WBC 4 /hpf Urine Squamous Epithelial Cells 2 /hpf Urine Hyaline Casts 1 /lpf Urine Mucus FEW /lpf Microscopic Urinalysis Comment CULT NOT INDICATED MDM Medical Decision Making Medical Screen Exam Complete: Yes Emergency Medical Condition: Yes Medical Record Reviewed: Yes Differential Diagnosis Cough and wheeze. Asthma with acute exacerbation. CHF. Influenza. Narrative Course Patient appears in mild respiratory distress but otherwise medically stable. Labs ordered including CBC, CMP, BNP, coagulation studies and urinalysis. Chest x-ray is ordered as well as EKG. Patient was given DuoNeb 3. Patient was given 60 mg prednisone p.o. CBC is unremarkable. Coagulation studies are normal. Chemistries show potassium 3.2, GFR 73, glucose 152, AST is 90, total protein 8.4. BNP is normal at 27 Rapid influenza is negative. Urinalysis is unremarkable. Chest x-ray shows: Normal examination except mild pulmonary vascular congestion. Patient was given Rocephin 1 g IM. Patient is given azithromycin 500 mg p.o. Patient will be continued on azithromycin 500 mg daily for 3 days. Patient continued on prednisone 20 mg twice daily for 5 days. Patient is given albuterol metered-dose inhaler 2 puffs every 4-6 hours as needed. Patient is given a nebulizer with equipment, as well as albuterol unit dose vials for nebulizer #60 Patient to follow-up with her local primary care physician or return to emergency department if symptoms worsen. Diagnosis Primary Impression: Acute wheezy bronchitis Referrals: Primary Care Physician Patient Instructions: Albuterol (By breathing), General Instructions, How to Use a Nebulizer (ED) Additional Instructions: Patient was given Rocephin 1 g IM. Patient is given azithromycin 500 mg p.o. Patient will be continued on azithromycin 500 mg daily for 3 days. Patient continued on prednisone 20 mg twice daily for 5 days. Patient is given albuterol metered-dose inhaler 2 puffs every 4-6 hours as needed. Patient is given a nebulizer with equipment, as well as albuterol unit dose vials for nebulizer #60 Patient to follow-up with her local primary care physician or return to emergency department if symptoms worsen. Med/Other Pt SpecificInfo: Prescription(s) given Scripts Nebulizer (Nebulizer) 1 Mis Mis EA .XX DIRECTED for Breathing Treatment, #1 0 Refills Prov: Oli Pelayo MD 07/10/17 Prednisone (Prednisone) 20 Mg Tab 20 MG PO BID for 5 Days, #10 TAB 0 Refills Prov: Oli Pelayo MD 07/10/17 Albuterol Neb (Albuterol Neb) 2.5 Mg/3 Ml Neb 2.5 MG NEB Q4HR NEB Y for SHORTNESS OF BREATH, #60 NEBULE 0 Refills Prov: Oli Pelayo MD 07/10/17 Albuterol 18 GM Inh (Ventolin Hfa 18 GM Inh) 90 Mcg/Act Aer 2 PUFF INH Q4-6H Y for SHORTNESS OF BREATH, #1 INHALER 0 Refills Prov: Oli Pelayo MD 07/10/17 Azithromycin (Azithromycin) 500 Mg Tab 500 MG PO DAILY for Infection, #3 TAB 0 Refills Prov: Oli Pelayo MD 07/10/17 Disposition: 01 DISCHARGE HOME Condition: Stable Alvaro Villegas Jul 10, 2017 08:04
[2017-07-10] MEDS: RESP: ALBUTEROL 2.5 MG/IPRATROPIUM 0.5 MG NEB (SCH) INH ×2 (08:14→08:15)
[2017-07-10] MEDS ORDERED: methylPREDNISolone SOD SUCC 125 MG/2 ML VIAL IV PUSH ONE (08:15)
[2017-07-10] MEDS ORDERED: SODIUM CHLORIDE 0.9% FLUSH 10 ML FLUSH IVF PRN (08:15)
--- NOTE | 2017-07-10 09:00 | RADRPT ---
EXAM DATE/TIME: 07/10/2017 08:38 [facility] COMPARISON: CHEST SINGLE AP, February 21, 2017, 18:59. INDICATIONS : Shortness of breath and chest pain. MEDICAL HISTORY : None. SURGICAL HISTORY : None. ENCOUNTER: Initial ACUITY: 2 days PAIN SCORE: 5/10 LOCATION: Bilateral chest Mid sternum FINDINGS: A single view of the chest demonstrates the lungs to be symmetrically aerated without evidence of mas s, infiltrate or effusion. The cardiomediastinal contours are unremarkable. Osseous structures are intact. CONCLUSION: Normal examination except mild pulmonary vascular congestion. Damon Bird MD on July 10, 2017 at 8:58 Board Certified Radiologist. This report was verified electronically.
[2017-07-10 09:08] LABS: AUTOMATED NEUTROPHIL # 5.2 TH/MM3 (1.8-7.7); BASOPHIL % 0.3 % (0.0-2.0); EOSINOPHIL % 0.1 % (0.0-4.0); HEMATOCRIT 44.3 % (35.0-46.0); HEMOGLOBIN 14.1 GM/DL (11.6-15.3); LYMPH % 17.4 % (9.0-44.0); LYMPHOCYTE # 1.2 TH/MM3 (1.0-4.8); MEAN CELL VOLUME 73.1 FL (80.0-100.0); MEAN CORPUSCULAR HEMOGLOBIN 23.3 PG (27.0-34.0); MEAN CORPUSCULAR HGB CONC 31.9 % (32.0-36.0); MEAN PLATELET VOLUME 8.9 FL (7.0-11.0); MONO % 6.7 % (0.0-8.0); MONOCYTE # 0.5 TH/MM3 (0-0.9); NEUT % 75.5 % (16.0-70.0); PLATELET COUNT 170 TH/MM3 (150-450); RED BLOOD COUNT 6.07 MIL/MM3 (4.00-5.30); RED CELL DISTRIBUTION WIDTH 15.4 % (11.6-17.2); WHITE BLOOD COUNT 6.9 TH/MM3 (4.0-11.0)
[2017-07-10 09:16] LABS: INTERNATIONAL NORMALIZED RATIO 1.1 RATIO; PROTHROMBIN TIME - PATIENT 11.2 SEC (9.8-11.6)
[2017-07-10] MEDS ORDERED: predniSONE 20 MG TAB PO ONE (09:30)
[2017-07-10 09:34] LABS: ALT (GPT) 36 U/L (10-53); AST (GOT) 90 U/L (15-37); BICARBONATE 27.4 MEQ/L (21.0-32.0); BLOOD UREA NITROGEN 18 MG/DL (7-18); CALCIUM 9.2 MG/DL (8.5-10.1); CHLORIDE 99 MEQ/L (98-107); CREATININE 0.95 MG/DL (0.50-1.00); GLOMERULAR FILTRATION RATE 73 ML/MIN (>89); GLUCOSE,RANDOM 152 MG/DL (74-106); SODIUM (NA) 137 MEQ/L (136-145)
[2017-07-10 09:37] LABS: ALKALINE PHOSPHATASE 67 U/L (45-117); TOTAL BILIRUBIN ADULT 0.6 MG/DL (0.2-1.0); TOTAL PROTEIN 8.4 GM/DL (6.4-8.2)
[2017-07-10] MEDS ORDERED: AZITHROMYCIN 250 MG TAB PO ONE (10:15)
[2017-07-10 10:32] LABS: BILIRUBIN, URINE NEG (NEG); BLOOD, URINE SMALL (NEG); GLUCOSE,URINE NEG (NEG); HYALINE CAST, URINE 1 /lpf (RARE); KETONE, URINE 10 mg/dL (NEG); MUCUS URINE FEW /lpf (OCC); NITRITE,URINE NEG (NEG); PH, URINE 5.5 (5.0-8.5); SQUAMOUS EPITHELIAL CELL URINE 2 /hpf (0-5); URINE COLOR YELLOW (YELLW/STRAW); URINE LEUKOCYTE ESTERASE NEG (NEG)
[2017-07-10] MEDS ORDERED: AZIT500T2 PO (10:32)
[2017-07-10] MEDS ORDERED: VENTAER INH (10:32)
[2017-07-10] MEDS ORDERED: PRED20 PO (10:32)
[2017-07-10] MEDS ORDERED: NEBULIZER1 MI1 (10:32)
[2017-07-10] MEDS ORDERED: ALBU0.08 NEB (10:32)
--- NOTE | 2017-07-11 13:24 | EKG ---
Date Performed: 07/10/2017 Time Performed: 08:29:21 PTAGE: 57 years EKG: Sinus rhythm MODERATE VOLTAGE CRITERIA FOR LVH, CONSIDER NORMAL VARIANT POSSIBLE LATERAL MYOCARDIAL INFARCTION AB NORMAL ECG PREVIOUS TRACING : 05/01/2016 19.22 DOCTOR: Damon Sepulveda Interpretating Date/Time 07/11/2017 13:20:55
== END 2017-07-10 11:06 | disposition home or self-care (01) ==
LOC: NEPD 07:49
DX: J20.9 Acute bronchitis, unspecified (principal); R94.31 Abnormal electrocardiogram [ECG] [EKG]; I11.0 Hypertensive heart disease with heart failure; I50.9 Heart failure, unspecified; J45.909 Unspecified asthma, uncomplicated; E11.9 Type 2 diabetes mellitus without complications; Z86.718 Personal history of other venous thrombosis and embolism; Z79.51 Long term (current) use of inhaled steroids; Z79.899 Other long term (current) drug therapy
CPT/HCPCS: 71045; 80053; 81001; 83880; 85025; 85610; 85730; 87804; 93005; 94640; 94664; 96372; 99285; J0696; J7512

== ENCOUNTER 2017-12-01 15:32 | Observation (INO) ==
[2017-12-01 16:33] LABS: Baso % (Auto) 0.6 % (0.0-2.0); Eos # (Auto) 0.3 th/mm3 (0.0-0.4); Eos % (Auto) 3.5 % (0.0-4.0); Hematocrit 37.8 % (35.0-46.0); Hemoglobin 11.9 gm/dL (11.6-15.3); Lymph # (Auto) 1.5 th/mm3 (1.0-4.8); Lymph % (Auto) 19.8 % (9.0-44.0); Mean Corpuscular HGB Conc 31.4 % (32.0-36.0); Mean Corpuscular Hemoglobin 22.7 pg (27.0-34.0); Mean Corpuscular Volume 72.4 fL (80.0-100.0); Mean Platelet Volume 9.4 fL (7.0-11.0); Mono # (Auto) 0.4 th/mm3 (0.0-0.9); Mono % (Auto) 5.5 % (0.0-8.0); Neut # (Auto) 5.4 th/mm3 (1.8-7.7); Neut % (Auto) 70.6 % (16.0-70.0); Platelet Count 197 th/mm3 (150-450); Red Blood Count 5.22 mil/mm3 (4.00-5.30); Red Cell Distribution Width 15.7 % (11.6-17.2); White Blood Count 7.7 th/mm3 (4.0-11.0)
--- NOTE | 2017-12-01 16:33 | XR ---
EXAM DATE: 12/01/2017 4:14 PM EDT AGE/SEX: 57 years / Female INDICATIONS: . Short of breath. CLINICAL DATA: This is the patient's subsequent encounter. Patient reports that signs and symptoms h ave been present for 4 - 6 days and indicates a pain score of 1/10. MEDICAL/SURGICAL HISTORY: None. None. [place] [facility] [place]. . FINDINGS: PA and lateral views the chest were obtained and demonstrate mild cardiomegaly. There is mild promine nce streaky interstitial opacities with no focal consolidation or effusion. The osseous structures ar e unremarkable. CONCLUSION: Mild cardiomegaly with questionable mild pulmonary edema. There is no focal consolidation. Electronically signed by: Austen Aguila MD 12/01/2017 4:31 PM EDT
[2017-12-01 17:21] LABS: Anion Gap 4 meq/L (5-15); Blood Urea Nitrogen 15 mg/dL (7-18); Calcium 8.9 mg/dL (8.5-10.1); Carbon Dioxide 30.7 meq/L (21.0-32.0); Chloride 109 meq/L (98-107); Glomerular Filtration Rate 82 mL/min (>89); Glucose,Random 136 mg/dL (74-106); Potassium 3.9 meq/L (3.5-5.1); Sodium 144 meq/L (136-145)
--- NOTE | 2017-12-01 17:45 | ECG ---
Date Performed: 12/01/2017 Time Performed: 16:00:11 PTAGE: 57 years EKG: Sinus rhythm MODERATE VOLTAGE CRITERIA FOR LVH, CONSIDER NORMAL VARIANT NONSPECIFIC T-WAVE ABNORMALITY BORDERLINE ECG Compared to prior electrocardiogram, Nonspecific T wave changes are less marked . DOCTOR: Luther Hines Interpretating Date/Time 12/01/2017 17:44:21
--- NOTE | 2017-12-01 20:02 | ED ---
HPI General Chief Complaint: Chest Pain Stated Complaint: Foot Complaint Time Seen by Provider: 12/01/17 20:00 Source: patient Mode of arrival: ambulatory Limitations: no limitations History of Present Illness HPI narrative: Per patient she follows up with [place] [facility] as her primary care physicians. Patient stated that over the past 4 days she has noted increasing swelling to her lower extremities as well as increasing shortness of breath and culminating with chest pain started yesterday at night. Chest pain is substernal nonradiating pressure 3-4 out of 10. MD complaint: chest pain Complete Quality Measures for STEMI Alert Patients STEMI Alert: No Onset (ago): day(s) (4 days) Duration: progressively worsening Onset: during rest Pain location: substernal Severity: mild Severity scale (1-10): 3 Quality: tightness Pain radiation: none Relieving factors: nothing Exacerbating factors: exertion Associated symptoms: dyspnea and leg swelling Treatments prior to arrival chest pain: none Related Data Allergies Allergy/AdvReac Type Severity Reaction Status Date / Time *MDRO Multi-Drug Resistant Allergy Unknown Uncoded 07/10/17 07:58 Organism Review of Systems Except as stated in HPI: all other systems reviewed are negative PMFSH History History Provided By: Patient Social History Social History Recent Travel in [facility] within the Last 8 Weeks: No Recent Out of Country Travel within the Last 8 Weeks: No Exam Narrative Exam Narrative: GENERAL: Well-nourished, well-developed patient in no apparent distress. SKIN: Warm and dry. HEAD: Atraumatic. Normocephalic. EYES: Pupils equal and round. No scleral icterus. No injection or drainage. ENT: No nasal bleeding or discharge. Mucous membranes pink and moist. NECK: Trachea midline. No JVD. CARDIOVASCULAR: Regular rate and rhythm. Displaced PMI to the left consistent with cardiomegaly. No rubs or gallops RESPIRATORY: No accessory muscle use. By basilar crackles present, adequate bilateral tidal volume present GASTROINTESTINAL: Abdomen soft, non-tender, nondistended. No rebound or guarding MUSCULOSKELETAL: Extremities without clubbing, cyanosis, or obvious deformities. Symmetric bilateral lower extremity pitting edema 2+ present NEUROLOGICAL: Awake and alert. No obvious cranial nerve deficits. Motor grossly within normal limits. Five out of 5 muscle strength in the arms and legs. Normal speech. PSYCHIATRIC: Appropriate mood and affect; insight and judgment normal. Course Initial Documented Vital Signs Temperature 97.9 F 12/01/17 15:36 Pulse Rate 85 12/01/17 15:36 Respiratory Rate 18 12/01/17 15:36 Blood Pressure 181/83 H 12/01/17 15:36 Pulse Oximetry 98 12/01/17 15:36 Last Documented Vital Signs Temperature 97.9 F 12/01/17 15:36 Pulse Rate 85 12/01/17 15:36 Respiratory Rate 18 12/01/17 15:36 Blood Pressure 181/83 H 12/01/17 15:36 Pulse Oximetry 98 12/01/17 15:36 Medical Decision Making MDM Narrative Medical decision making narrative: Based on the patient's complaint of shortness of breath chest tightness and increased swelling to her lower extremities as well as the findings of pulmonary edema and cardiomegaly on chest x-ray although the patient denies having a history of or even having a industrial maintenance instructor that follows her, she demonstrates findings consistent with CHF. Her findings are consistent with CHF exacerbation. And she will be admitted to rule out non-STEMI Medical Records Medical records reviewed: Yes I reviewed the patient's medical records. Lab Data Lab results reviewed: Yes I reviewed the patient's lab results. Result diagrams: 12/01/17 15:55 12/01/17 15:55 Lab Results 12/01/17 12/01/17 Range/Units 15:55 15:55 WBC 7.7 (4.0-11.0) th/mm3 RBC 5.22 (4.00-5.30) mil/mm3 Hgb 11.9 (11.6-15.3) gm/dL Hct 37.8 (35.0-46.0) % MCV 72.4 L (80.0-100.0) fL MCH 22.7 L (27.0-34.0) pg MCHC 31.4 L (32.0-36.0) % RDW 15.7 (11.6-17.2) % Plt Count 197 (150-450) th/mm3 MPV 9.4 (7.0-11.0) fL Neut % (Auto) 70.6 H (16.0-70.0) % Lymph % (Auto) 19.8 (9.0-44.0) % [place] % (Auto) 5.5 (0.0-8.0) % Eos % (Auto) 3.5 (0.0-4.0) % Baso % (Auto) 0.6 (0.0-2.0) % Neut # (Auto) 5.4 (1.8-7.7) th/mm3 Lymph # (Auto) 1.5 (1.0-4.8) th/mm3 [place] # (Auto) 0.4 (0.0-0.9) th/mm3 Eos # (Auto) 0.3 (0.0-0.4) th/mm3 Baso # (Auto) 0.0 (0.0-0.2) th/mm3 WBC Differential . Differential Comment Auto diff final Sodium 144 (136-145) meq/L Potassium 3.9 (3.5-5.1) meq/L Chloride 109 H (98-107) meq/L Carbon Dioxide 30.7 (21.0-32.0) meq/L Anion Gap 4 L (5-15) meq/L BUN 15 (7-18) mg/dL Creatinine 0.86 (0.50-1.00) mg/dL Estimated GFR 82 L (>89) mL/min Random Glucose 136 H (74-106) mg/dL Calcium 8.9 (8.5-10.1) mg/dL Troponin I Less than 0.02 L (0.02-0.05) ng/mL Imaging Data My impression: Somehow the patient the radiologist report did not crossover to E HR. However per the report radiologist found cardiomegaly with questionable mild pulmonary edema without focal consolidation. Radiologist's impression: Chest X-Ray 12/01/17 15:43 CONCLUSION: Discharge Plan Discharge Disposition Patient Disposition: 30 Still Patient Discharge Condition Condition: Stable Discharge Details Diagnosis: Chest pain, rule out acute myocardial infarction, Acute exacerbation of CHF ( congestive heart failure) Physicians Team ED Provider: Oli Pelayo Discharge Instructions Patient Printed Instructions: Chest Pain (ED) Discharge Interventions Interventions: Vital Signs Last Done: 12/01/17 15:36 Status ED Status: With Doctor
[2017-12-01] MEDS ORDERED: Bisacodyl 10 MG Supp RECTAL PRN (21:36)
[2017-12-01] MEDS ORDERED: Acetaminophen 325 MG Tablet PO PRN (21:36)
[2017-12-01] MEDS ORDERED: Temazepam 15 MG Capsule PO PRN (21:36)
[2017-12-01 22:05] LABS: Activated Partial Thrombo Time 23.7 sec (24.3-30.1); Prothrombin Time 9.8 sec (9.8-11.6)
[2017-12-01 22:55] LABS: Creatine Kinase 616 U/L (26-192)
[2017-12-01 23:07] LABS: CKMB Percent 1.9 % (0.0-4.0); Creatine Kinase MB 11.9 ng/mL (0.5-3.6)
--- NOTE | 2017-12-01 23:27 | P.HPIM ---
History of Present Illness Primary Care Physician: No Primary Care Physician History of Present Illness: 57 y/o female with a history of asthma, chf, and diabetes who is under the care of [facility] presented to the ed with complaints of sob and swelling in her lower extremities. She states she does not take any Lasix at home. Upon arrival she complained of chest pain that was substernal and non radiating, and since admission the pain has resolved. She denies any fever, chills, cough, or sputum production. Review of Systems All other systems reviewed negative except as stated in HPI PMFSH - History History Provided By: Patient - Medical History Medical History: Medical History (Last Updated 12/01/17 @ 22:45 by Yumiko Gresham RN) Asthma Cardiac abnormality Congestive heart failure (CHF) Diabetes - Surgical History Surgical History: Surgical History (Last Updated 12/01/17 @ 20:55 by Atul Tovar) H/O removal of cyst - Tobacco History Second Hand Smoke Exposure: No Smoking Status: Never smoker - Alcohol History How Often Do You Have a Drink Containing Alcohol: Never - Substance Use History Substance History: No History of Abuse - Travel History Recent Travel in the [place] Within the Last 8 Weeks: No Recent Travel Out of the Country Within the Last 8 Weeks: No - Immunization History Tetanus Immunization: Unsure Hx Influenza Vaccine This Season: No Medications and Allergies Active Medications: Active Medications Acetaminophen (Tylenol) 650 mg PO Q4H PRN PRN Reason: Temp > 100.4 Al Hydroxide/Mg Hydroxide (Milk Of Magnesia Liq) 30 ml PO Q12H PRN PRN Reason: Mild Constipation Bisacodyl (Dulcolax Supp) 10 mg RECTAL DAILY PRN PRN Reason: SEVERE CONSITIPATION Furosemide (Lasix Inj) 20 mg IV.PUSH BID@0900,1800 MAXIMO Lactulose (Lactulose Liq) 30 ml PO DAILY PRN PRN Reason: SEVERE CONSITIPATION Ondansetron HCl (Zofran Inj) 4 mg IV.PUSH Q6H PRN PRN Reason: NAUSEA OR VOMITING Senna/Docusate Sodium (Heide-Colace) 1 tab PO BID MAXIMO Sennosides (Senokot) 17.2 mg PO Q12H PRN PRN Reason: Moderate Constipation Temazepam (Restoril) 15 mg PO HS PRN PRN Reason: INSOMNIA Allergies Allergy/AdvReac Type Severity Reaction Status Date / Time *MDRO Multi-Drug Resistant Allergy Unknown Uncoded 07/10/17 07:58 Organism Home Medications Medication Instructions Recorded Confirmed Type gabapentin 300 mg PO DAILY 12/01/17 12/01/17 History hydrocodone-acetaminophen 1 tab PO Q4-6H PRN 12/01/17 12/01/17 History metformin 850 mg PO BID 12/01/17 12/01/17 History Exam Vital signs: Vital Signs 12/01/17 15:36 12/01/17 20:00 12/01/17 22:37 Temperature 97.9 F Pulse Rate 85 63 Respiratory Rate 18 18 16 Blood Pressure 181/83 H 142/81 H Pulse Oximetry 98 99 12/01/17 23:04 Temperature 98.2 F Pulse Rate 74 Respiratory Rate 18 Blood Pressure 124/68 Pulse Oximetry 98 Intake & Output 12/01/17 12/01/17 12/02/17 06:59 18:59 06:59 Weight 98.883 kg Narrative: GENERAL: This is a obese, in no apparent distress. CARDIOVASCULAR: Regular rate and rhythm without murmurs, gallops, or rubs. RESPIRATORY: Diminished bases, No wheezes, rales, or rhonchi. no crackles noted GASTROINTESTINAL: Abdomen soft, non-tender, nondistended. Normal active bowel sounds MUSCULOSKELETAL: Bilateral lower extremity edema, +1 pitting NEURO: Alert & Oriented x4 to person, place, time, situation. Moves all ext x4 Results - Labs CBC & Chem 7: 12/01/17 15:55 12/01/17 15:55 Labs: Short CBC 12/01/17 Range/Units 15:55 WBC 7.7 (4.0-11.0) th/mm3 Hgb 11.9 (11.6-15.3) gm/dL Hct 37.8 (35.0-46.0) % Plt Count 197 (150-450) th/mm3 BMP 12/01/17 15:55 Sodium 144 Potassium 3.9 Chloride 109 H Carbon Dioxide 30.7 BUN 15 Creatinine 0.86 Calcium 8.9 Cardiac Enzymes 12/01/17 12/01/17 Range/Units 15:55 22:05 Total Creatine Kinase 616 H (26-192) U/L CK-MB (CK-2) 11.9 H (0.5-3.6) ng/mL Troponin I Less than 0.02 L Less than 0.02 L (0.02-0.05) ng/mL - Imaging Impressions Chest X-Ray 12/01/17 15:43 CONCLUSION: Caprini VTE Risk Assessment Caprini VTE Risk Assessment: Moderate/High Risk (score >= 2) Caprini Risk Assessment Model: Point Value = 1 Point Value = 2 Point Value = 3 Point Value = 5 Age 41-60 Minor surgery BMI > 25 kg/m2 Swollen legs Varicose veins or History of unexplained or recurrent spontaneous Oral contraceptives or hormone replacement Sepsis (< 1 month) Serious lung disease, including pneumonia (< 1 month) Abnormal pulmonary function Acute myocardial infarction Congestive heart failure (< 1 month) History of inflammatory bowel disease Medical patient at bed rest Age 61-74 Arthroscopic surgery Major open surgery (> 45 min) Laparoscopic surgery (> 45 min) Malignancy Confined to bed (> 72 hours) Immobilizing plaster cast Central venous access Age >= 75 History of VTE Family history of VTE Factor V Leiden Prothrombin [id number] Lupus anticoagulant Anticardiolipin antibodies Elevated serum homocysteine Heparin-induced thrombocytopenia Other congenital or acquired thrombophilia Stroke (< 1 month) Elective arthroplasty Hip, pelvis, or leg fracture Acute spinal cord injury (< 1 month) Prophylaxis Regimen: Total Risk Factor Score Risk Level Prophylaxis Regimen 0-1 Low Early ambulation 2 Moderate Order ONE of the following: *Sequential Compression Device (SCD) *Heparin 5000 units SQ BID 3-4 Higher Order ONE of the following medications: *Heparin 5000 units SQ TID *Enoxaparin/Lovenox 40 mg SQ daily (WT < 150 kg, CrCl > 30 mL/min) *Enoxaparin/Lovenox 30 mg SQ daily (WT < 150 kg, CrCl > 10-29 mL/min) *Enoxaparin/Lovenox 30 mg SQ BID (WT < 150 kg, CrCl > 30 mL/min) AND/OR *Sequential Compression Device (SCD) 5 or more Highest Order ONE of the following medications: *Heparin 5000 units SQ TID (Preferred with Epidurals) *Enoxaparin/Lovenox 40 mg SQ daily (WT < 150 kg, CrCl > 30 mL/min) *Enoxaparin/Lovenox 30 mg SQ daily (WT < 150 kg, CrCl > 10-29 mL/min) *Enoxaparin/Lovenox 30 mg SQ BID (WT < 150 kg, CrCl > 30 mL/min) AND *Sequential Compression Device (SCD) Assessment and Plan - Plan 57 y/o female with a history of asthma, chf, and diabetes who is under the care of [facility] presented to the ed with complaints of sob and swelling in her lower extremities. CHF exacerbation with lower extremity edema Chest x ray shows mild cardiomegaly with questionable mild pulmonary edema. BNP normal -Lasix IV bid -2d echo ordered, last echo 2012 showed no wall motion, normal systolic function and EF 55-60% Chest pain, likey due to pulmonary edema, r/o acs troponin .[address] elevation -Serial troponin and ekgs -Morphine IV for chest pain -Nitropaste -NPO Diabetes, chronic -Accu checks with SSI -Hold metformin for now DVT prophylaxis: SCDs, heparin sq Discussed Condition With: Patient and RN H&P: Quality - VTE Deep Vein Thrombosis/Pulmonary Embolism Present on Admission: No
[2017-12-02] MEDS ORDERED: Dextrose 50% in Water 50 ML Vial IV.PUSH PRN (02:06)
[2017-12-02 03:59] LABS: Baso % (Auto) 0.5 % (0.0-2.0); Eos # (Auto) 0.3 th/mm3 (0.0-0.4); Eos % (Auto) 3.6 % (0.0-4.0); Hematocrit 36.4 % (35.0-46.0); Hemoglobin 11.2 gm/dL (11.6-15.3); Lymph # (Auto) 1.4 th/mm3 (1.0-4.8); Mean Corpuscular Hemoglobin 22.3 pg (27.0-34.0); Mean Corpuscular Volume 72.4 fL (80.0-100.0); Mean Platelet Volume 9.3 fL (7.0-11.0); Mono # (Auto) 0.5 th/mm3 (0.0-0.9); Mono % (Auto) 6.3 % (0.0-8.0); Neut % (Auto) 70.6 % (16.0-70.0); Platelet Count 185 th/mm3 (150-450); Red Blood Count 5.03 mil/mm3 (4.00-5.30); Red Cell Distribution Width 15.5 % (11.6-17.2); White Blood Count 7.2 th/mm3 (4.0-11.0)
[2017-12-02 04:06] LABS: Mean Corpuscular HGB Conc 30.8 % (32.0-36.0)
[2017-12-02 04:24] LABS: Anion Gap 5 meq/L (5-15); Blood Urea Nitrogen 16 mg/dL (7-18); Calcium 8.6 mg/dL (8.5-10.1); Chloride 106 meq/L (98-107); Glomerular Filtration Rate Greater Than 89 mL/min (>89); Glucose,Random 160 mg/dL (74-106); Potassium 3.8 meq/L (3.5-5.1); Sodium 144 meq/L (136-145)
[2017-12-02 04:30] LABS: Creatine Kinase 452 U/L (26-192)
[2017-12-02 04:42] LABS: CKMB Percent 1.7 % (0.0-4.0); Creatine Kinase MB 7.9 ng/mL (0.5-3.6)
[2017-12-02] MEDS: Heparin - SQ 10,000 UNITS/ML Vial SQ SCH ×2 (05:31→13:36)
--- NOTE | 2017-12-02 07:49 | ECG ---
Date Performed: 12/02/2017 Time Performed: 04:20:04 PTAGE: 57 years EKG: Sinus rhythm MINIMAL VOLTAGE CRITERIA FOR LVH, CONSIDER NORMAL VARIANT POSSIBLE LATERAL MYOCARDIAL INFARCTION AB NORMAL ECG No significant change from prior electrocardiogram. DOCTOR: Luther Hines Interpretating Date/Time 12/02/2017 07:47:42
--- NOTE | 2017-12-02 07:50 | ECG ---
Date Performed: 12/02/2017 Time Performed: 00:13:21 PTAGE: 57 years EKG: Sinus rhythm MODERATE VOLTAGE CRITERIA FOR LVH, CONSIDER NORMAL VARIANT POSSIBLE LATERAL MYOCARDIAL INFARCTION CECILLE RDERLINE ECG No significant change from prior electrocardiogram. PREVIOUS TRACING : 12/01/2017 22.00 DOCTOR: Luther Hines Interpretating Date/Time 12/02/2017 07:49:14
--- NOTE | 2017-12-02 07:52 | ECG ---
Date Performed: 12/01/2017 Time Performed: 22:00:32 PTAGE: 57 years EKG: Sinus rhythm WITH SINUS ARRHYTHMIA MODERATE VOLTAGE CRITERIA FOR LVH, CONSIDER NORMAL VARIANT NONSPECIFIC T-WAVE ABNORMALITY BORDERLINE ECG No significant change from prior electrocardiogram. PREVIOUS TRACING : 12/01/2017 16.00 DOCTOR: Luther Hines Interpretating Date/Time 12/02/2017 07:50:44
[2017-12-02] MEDS ORDERED: Senna/Docusate Sodium 8.6/50 MG Tablet PO SCH (09:00)
[2017-12-02] MEDS ORDERED: Gabapentin 300 MG Capsule PO SCH (09:00)
[2017-12-02] MEDS: Insulin NovoLOG Aspart Correctional Sugar Inj SQ SCH ×3 (09:31→17:34)
--- NOTE | 2017-12-02 09:33 | P.PN ---
Subjective Interval history: Follow-up shortness of breath and chest pain. Pt denies c/o sob when she came in. CC was BLE edema no pain. noncompliant with fluid and salt restriction. She had fleeting mild sharp nonexertional CP x 1 yesterday Physical Exam Vital signs: Vital Signs 12/01/17 15:36 12/01/17 20:00 12/01/17 22:37 Temperature 97.9 F Pulse Rate 85 63 Respiratory Rate 18 18 16 Blood Pressure 181/83 H 142/81 H Pulse Oximetry 98 99 12/01/17 23:04 12/02/17 04:00 Temperature 98.2 F 98.0 F Pulse Rate 74 65 Respiratory Rate 18 18 Blood Pressure 124/68 102/62 Pulse Oximetry 98 96 Intake & Output 12/01/17 12/02/17 12/02/17 18:59 06:59 18:59 Weight 98.883 kg Narrative: GENERAL: This is a obese, in no apparent distress. CARDIOVASCULAR: Regular rate and rhythm without murmurs, gallops, or rubs. RESPIRATORY: Diminished bases, No wheezes, rales, or rhonchi. no crackles noted GASTROINTESTINAL: Abdomen soft, non-tender, nondistended. Normal active bowel sounds MUSCULOSKELETAL: Bilateral lower extremity edema, +1 pitting NEURO: Alert & Oriented x4 to person, place, time, situation. Moves all ext x4 Results - Labs CBC & Chem 7: 12/02/17 03:29 12/02/17 03:29 Laboratory Results - last 24 hr 12/01/17 12/01/17 12/01/17 15:55 15:55 15:55 WBC 7.7 RBC 5.22 Hgb 11.9 Hct 37.8 MCV 72.4 L MCH 22.7 L MCHC 31.4 L RDW 15.7 Plt Count 197 MPV 9.4 Neut % (Auto) 70.6 H Lymph % (Auto) 19.8 Citrus % (Auto) 5.5 Eos % (Auto) 3.5 Baso % (Auto) 0.6 Neut # (Auto) 5.4 Lymph # (Auto) 1.5 Citrus # (Auto) 0.4 Eos # (Auto) 0.3 Baso # (Auto) 0.0 WBC Differential . Differential Comment Auto diff final PT INR APTT Sodium 144 Potassium 3.9 Chloride 109 H Carbon Dioxide 30.7 Anion Gap 4 L BUN 15 Creatinine 0.86 Estimated GFR 82 L POC Glucose Random Glucose 136 H Calcium 8.9 Total Creatine Kinase CK-MB (CK-2) CK-MB (CK-2) % Troponin I Less than 0.02 L B-Natriuretic Peptide 10 12/01/17 12/01/17 12/02/17 21:35 22:05 03:29 WBC RBC Hgb Hct MCV MCH MCHC RDW Plt Count MPV Neut % (Auto) Lymph % (Auto) Citrus % (Auto) Eos % (Auto) Baso % (Auto) Neut # (Auto) Lymph # (Auto) Citrus # (Auto) Eos # (Auto) Baso # (Auto) WBC Differential Differential Comment PT 9.8 INR 1.0 APTT 23.7 L Sodium Potassium Chloride Carbon Dioxide Anion Gap BUN Creatinine Estimated GFR POC Glucose Random Glucose Calcium Total Creatine Kinase 616 H 452 H CK-MB (CK-2) 11.9 H 7.9 H CK-MB (CK-2) % 1.9 1.7 Troponin I Less than 0.02 L Less than 0.02 L B-Natriuretic Peptide 12/02/17 12/02/17 12/02/17 03:29 03:29 09:19 WBC 7.2 RBC 5.03 Hgb 11.2 L Hct 36.4 MCV 72.4 L MCH 22.3 L MCHC 30.8 L RDW 15.5 Plt Count 185 MPV 9.3 Neut % (Auto) 70.6 H Lymph % (Auto) 19.0 Citrus % (Auto) 6.3 Eos % (Auto) 3.6 Baso % (Auto) 0.5 Neut # (Auto) 5.0 Lymph # (Auto) 1.4 Citrus # (Auto) 0.5 Eos # (Auto) 0.3 Baso # (Auto) 0.0 WBC Differential . Differential Comment Auto diff final PT INR APTT Sodium 144 Potassium 3.8 Chloride 106 Carbon Dioxide 33.0 H Anion Gap 5 BUN 16 Creatinine 0.76 Estimated GFR Greater than 89 POC Glucose 133 H Random Glucose 160 H Calcium 8.6 Total Creatine Kinase CK-MB (CK-2) CK-MB (CK-2) % Troponin I B-Natriuretic Peptide - Imaging Impressions Chest X-Ray 12/01/17 15:43 CONCLUSION: - Procedures none Assessment and Plan - Plan 57 y/o female with a history of asthma, chf, and diabetes who is under the care of [facility] presented to the ed with complaints of sob and swelling in her lower extremities. CHF exacerbation with lower extremity edema Chest x ray shows mild cardiomegaly with questionable mild pulmonary edema. BNP normal -Lasix IV bid -2d echo ordered, last echo 2012 showed no wall motion, normal systolic function and EF 55-60% -CHF education, I/L and monitor weight Chest pain, atypical. Ruled out for SC Low risk for PE pt not SOB, tachycardic and hypoxic troponin .02 Diabetes, chronic -Accu checks with SSI -Hold metformin for now DVT prophylaxis: SCDs, heparin sq Discharge Planning: Discharge patient to home Condition on discharge: Improved Regular Diet as tolerated Ad Brinda activity no driving Rx written: Lasix Follow-up with primary care physician
[2017-12-02] MEDS ORDERED: Aspirin 325 MG Tablet PO SCH (09:45)
[2017-12-02 12:46] VITALS: RESP 16
[2017-12-02 16:41] VITALS: BP 156/74; TEMP 98.4; O2SAT 96
--- NOTE | 2017-12-02 17:16 | ECHRPT ---
Indication: hEART FAILURE CONCLUSIONS mormal lv size, wall thickness, ef=55% There is trace tricuspid valve regurgitation. The estimated pulmonary arterial pressure is 29.2 mmHg. The aortic root and proximal ascending aorta are not well visualized. There is trace tricuspid valve regurgitation. The estimated pulmonary arterial pressure is 29.2 mmHg. The transthoracic study is normal by two-dimensional, color flow imaging and Doppler interrogation. BP: / HR: Rhythm: MEASUREMENTS (Male / Female) Normal Values Technical Quality:Good 2D ECHO LV Diastolic Diameter PLAX 4.1 cm 4.2 - 5.9 / 3.9 - 5.3 cm LV Systolic Diameter PLAX 3.0 cm IVS Diastolic Thickness 1.1 cm 0.6 - 1.0 / 0.6 - 0.9 cm LVPW Diastolic Thickness 1.1 cm 0.6 - 1.0 / 0.6 - 0.9 cm LV Relative Wall Thickness 0.5 RV Internal Dim ED PLAX 1.9 cm M-MODE Aortic Root Diameter MM 2.6 cm LA Systolic Diameter MM 4.0 cm LA Ao Ratio MM 1.5 AV Cusp Separation MM 1.3 cm DOPPLER Mitral E Point Velocity 52.9 cm/s Mitral A Point Velocity 85.5 cm/s Mitral E to A Ratio 0.6 TR Peak Velocity 219.0 cm/s TR Peak Gradient 19.2 mmHg Right Atrial Pressure 10.0 mmHg Pulmonary Artery Systolic Pressu 29.2 mmHg Right Ventricular Systolic Press 29.2 mmHg FINDINGS LEFT VENTRICLE Normal left ventricular size and wall thickness. The left ventricular systolic function is normal wi th an estimated ejection fraction in the range of 60-65%. Left ventricular diastolic function parameters a re normal. RIGHT VENTRICLE Normal right ventricular size and systolic function. LEFT ATRIUM The left atrial size is normal. RIGHT ATRIUM The right atrial size is normal. ATRIAL SEPTUM Normal atrial septal thickness without atrial level shunting by limited color doppler interrogation. AORTA The aortic root and proximal ascending aorta are not well visualized. MITRAL VALVE Structurally normal mitral valve. No mitral valve stenosis or regurgitation. AORTIC VALVE Trileaflet aortic valve. No aortic valve stenosis or regurgitation. TRICUSPID VALVE There is trace tricuspid valve regurgitation. The estimated pulmonary arterial pressure is 29.2 mmHg. PULMONARY VALVE No pulmonary valve regurgitation or stenosis. VESSELS The inferior vena cava is normal in size. PERICARDIUM No pericardial effusion. Torsten Mosquera MD, FACC, FSCAI (Electronically Signed) Final Date:02 December 2017 17:15
[2017-12-02 17:48] VITALS: PULSE 74
== END 2017-12-02 18:54 | disposition home or self-care (01) ==
LOC: NEPC 15:32 → NEPFCDU 15:32 → NEDA 15:32 → NEPFCDU 23:11
PROVIDERS: ADMIT Internal Medicine; ATTEND Internal Medicine